=== PATIENT | male | born 1980 | race Caucasian/White ===

== ENCOUNTER 2017-07-02 08:42 | Emergency (ER) | payer MEDICAID, OTHER ==
[~2017-07-02] VITALS: Ht 180.3 cm; Wt 97.6 kg
[2017-07-02 08:46] VITALS: BP 138/87
--- NOTE | 2017-07-02 08:52 | NUR ---
PT AMBULATED TO ER BED 04
--- NOTE | 2017-07-02 09:05 | NUR ---
PATIENT PRESENTS TO ED WITH C/O COUGHING UP BLOOD x 3 DAYS. PT DENIES FEVER OR CHILLS. MEDS: NONE HX: LIVER CHIRROSIS 2013 AND ANXIETY, PT STATES IM SPITTING BLOOD AND I HAVE ANXIETY,PER PT HE USED TO ALCOHOLIC AND HE STOP 2 DAYS AGO, WITH N/V/D; SKIN IS PINK/WARM/DRY; AAOX4 WITH EVEN AND STEADY GAIT; LUNGS CLEAR BL; HR EVEN AND REGULAR; PT DENIES ANY FEVER, CP, OR COUGH AT THIS TIME; PATIENT STATES PAIN OF 9/10 AT THIS TIME/CHEST LEFT ABDOMEN; PATIENT POSITIONED FOR COMFORT; HOB ELEVATED; BEDRAILS UP X2; BED DOWN. ER MD MADE AWARE OF PT STATUS.
[2017-07-02] MEDS ORDERED: ONDANSETRON 4 MG/2 ML VIAL IVP ONE (09:20)
[2017-07-02] MEDS ORDERED: NACL 0.9% 1,000 ML IV ONE (09:20)
[2017-07-02] MEDS ORDERED: LORazepam 2 MG/ML VIAL IVP ONE (09:20)
[2017-07-02 09:50] LABS: BASOPHILS # (AUTO) 0.2 K/uL (0.00-0.22); HEMOGLOBIN 15.1 g/dL (12.0-18.0); MONOCYTES # (AUTO) 0.4 K/uL (0.8-1.0); RED CELL DISTRIBUTION WIDTH 15.7 % (11.6-13.7); WHITE BLOOD COUNT (AUTO) 3.7 K/uL (4.8-10.8)
[2017-07-02 09:54] LABS: BASOPHILS % (AUTO) 4.2 % (0.0-2.0); EOSINOPHILS % (AUTO) 0.8 % (0.0-4.0); HEMATOCRIT 45.3 % (36-52); LYMPHOCYTES # (AUTO) 0.7 K/uL (2.0-11.5); LYMPHOCYTES % (AUTO) 17.9 % (20.5-51.1); MEAN CORPUSCULAR HEMOGLOBIN 30 pg (27-31); MEAN CORPUSCULAR HGB CONC 33 g/dL (33-37); MEAN CORPUSCULAR VOLUME 91 fL (80-94); NEUTROPHILS # (AUTO) 2.4 K/uL (1.8-7.7); NEUTROPHILS % (AUTO) 66.1 % (42.2-75.2); PLATELET COUNT (AUTO) 171 K/uL (140-450)
[2017-07-02 10:03] LABS: CARBON DIOXIDE 26.3 mmol/L (21-32); POTASSIUM 4.3 mmol/L (3.5-5.1)
[2017-07-02 10:09] LABS: ALBUMIN 4.2 g/dL (3.4-5.0); TOTAL BILIRUBIN 1.2 mg/dL (0.0-1.0)
[2017-07-02 10:10] LABS: PROTHROMBIN TIME 10.3 secs (10.8-13.4)
[2017-07-02 10:43] VITALS: BP 128/75
== END 2017-07-02 10:42 | disposition home or self-care (01) ==
LOC: MED 08:42
DX: F10.10 Alcohol abuse, uncomplicated (principal); K74.60 Unspecified cirrhosis of liver
CPT/HCPCS: 36415; 80053; 83690; 85025; 85610; 85730; 86886; 86900; 86901; 96361; 96374; 96375; 99284; J2060; J2405; J7030

== ENCOUNTER 2018-05-25 09:40 | Emergency (ER) | payer MEDICAID, OTHER ==
[~2018-05-25] VITALS: Ht 180.3 cm; Wt 83.9 kg
[2018-05-25 09:44] VITALS: BP 144/93
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
--- NOTE | 2018-05-25 10:27 | NUR ---
RETURN FROM CT.
--- NOTE | 2018-05-25 10:34 | NUR ---
Patient being evaluated by DR CORDERO at bedside.
--- NOTE | 2018-05-25 10:35 | NUR ---
WOUND CLEAN BY SIMONE HELMS
--- NOTE | 2018-05-25 10:49 | NUR ---
ALLAN AT [facility] BY DR CORDERO. PT TOLERATED PROCEDURE WELL.
[2018-05-25 11:11] VITALS: BP 118/76
--- NOTE | 2018-05-25 11:11 | NUR ---
Patient given written and verbal discharge instructions and verbalizes understanding. Given copies of tests performed during visit. Patient is awake, alert and oriented. Ambulatory with steady gait. Refuses offer of group home placement. Given list of available shelters in surrounding areas. GAVE HOMLESS RESOUCES, FOOD & CLOTHES.
== END 2018-05-25 11:11 | disposition home or self-care (01) ==
LOC: MED 09:40
DX: S01.01XA Laceration without foreign body of scalp, initial encounter (principal); R11.0 Nausea; M54.2 Cervicalgia; W19.XXXA Unspecified fall, initial encounter; Y93.55 Activity, bike riding; Y92.89 Other specified places as the place of occurrence of the external cause; Y99.8 Other external cause status
CPT/HCPCS: 12001; 70450; 90471; 90715; 99284

== ENCOUNTER 2019-02-13 13:59 | Emergency (ER) | payer OTHER ==
[~2019-02-13] VITALS: Ht 177.8 cm; Wt 77.1 kg
--- NOTE | 2019-02-13 13:59 | NUR ---
Patient BIBA BLS, transferred to bed 5. RN evaluating patient at bedside.
[2019-02-13 14:02] VITALS: BP 106/80
--- NOTE | 2019-02-13 14:15 | NUR ---
PT BROUGHT IN BY EMS FOR ALCOHOL INTOXICATION. PT STATES THAT HE DRINKS "THE HARD STUFF", PT REPORTS LAST DRINK AT 11AM ON 02/13/19, AMOUNT UNKNOWN. PT REQUESTING ATIVAN AND YELLING FOR DOCTOR. SEIZURE PADS IN PLACE. BED RAILS X 2 FOR PATIENT SAFETY. ER MD TO SEE PT. HX: CIRRHOSIS OF THE LIVER RX:SEROQUEL
--- NOTE | 2019-02-13 14:19 | NUR ---
PT YELLING OUT FOR THE , YELLING " I WANT ATIVAN!"
[2019-02-13] MEDS ORDERED: MULTIVITAMIN-12 10 ML, THIAMINE 100 MG, MAGNESIUM SULFATE 50% 2,000 MG, FOLIC ACID 5 MG... IV ONE ×5 (14:21)
[2019-02-13] MEDS ORDERED: NACL 0.9% 1,000 ML IV ONE (14:21)
[2019-02-13] MEDS ORDERED: PROMETHAZINE 25 MG/ML VIAL IM ONE (14:25)
[2019-02-13] MEDS ORDERED: LORazepam 2 MG/ML VIAL IVP ONE (14:25)
--- NOTE | 2019-02-13 14:25 | NUR ---
lights dimmed for pt comfort
--- NOTE | 2019-02-13 14:40 | NUR ---
ORDERED REG DIET TRAY FOR PT
[2019-02-13 15:10] LABS: BASOPHILS # (AUTO) 0.1 K/uL (0.00-0.22); BASOPHILS % (AUTO) 1.4 % (0.0-2.0); EOSINOPHILS # (AUTO) 0.1 K/uL (0-0.4); EOSINOPHILS % (AUTO) 2.5 % (0.0-4.0); HEMATOCRIT 41.9 % (36-52); LYMPHOCYTES # (AUTO) 1.4 K/uL (2.0-11.5); LYMPHOCYTES % (AUTO) 29.2 % (20.5-51.1); MEAN CORPUSCULAR HEMOGLOBIN 32 pg (27-31); MEAN CORPUSCULAR HGB CONC 34 g/dL (33-37); MEAN CORPUSCULAR VOLUME 96.8 fL (80-94); MONOCYTES # (AUTO) 0.3 K/uL (0.8-1.0); MONOCYTES % (AUTO) 5.9 % (1.7-9.3); NEUTROPHILS # (AUTO) 2.8 K/uL (1.8-7.7); PLATELET COUNT (AUTO) 207 K/uL (140-450); RED BLOOD CELL COUNT(AUTO) 4.33 MIL/uL (4.20-6.10); RED CELL DISTRIBUTION WIDTH 15.2 % (11.6-13.7); WHITE BLOOD COUNT (AUTO) 4.6 K/uL (4.8-10.8)
[2019-02-13 15:15] LABS: APPEARANCE,URINE CLEAR (CLEAR); BILIRUBIN,URINE NEGATIVE (NEGATIVE); BLOOD, URINE NEGATIVE (NEGATIVE); COLOR,URINE AMBER (YELLOW); LEUKOCYTE ESTERASE ,URINE NEGATIVE (NEGATIVE); NITRITE, URINE NEGATIVE (NEGATIVE); UGLUCOSE NEGATIVE (NEGATIVE)
[2019-02-13 15:18] LABS: BARBITURATE, URINE NEG. ng/ml (NEG <=200); BENZODIAZEPINE, URINE NEG. ng/mL (NEG <=200); CANNABINOID, URINE NEG. ng/mL (NEG <=50); COCAINE, URINE NEG. ng/mL (NEG <=300); OPIATE, URINE NEG. ng/mL (NEG <=2000); PHENCYCLIDINE SCREEN,URINE NEG. ng/mL (NEG <=25)
--- NOTE | 2019-02-13 15:35 | NUR ---
pt asleep in bed, arousable to verbal stimuli. diet tray placed at bedside
[2019-02-13 15:49] LABS: ALBUMIN 3.4 g/dL (3.4-5.0); ANION GAP 12.3 (8-16); ASPARTATE AMINOTRANSFERASE 124 U/L (15-37); CARBON DIOXIDE 30.5 mmol/L (21-32); CHLORIDE 107 mmol/L (98-107); CREATININE 0.8 mg/dL (0.7-1.3); GFR ARICAN-AMERICAN 138 mL/min (>90); GLUCOSE 93 mg/dL (74-106); POTASSIUM 3.8 mmol/L (3.5-5.1); SODIUM SERUM 146 mmol/L (136-145); TOTAL BILIRUBIN 0.2 mg/dL (0.0-1.0); UREA NITROGEN, BLOOD 6 mg/dL (7-18)
[2019-02-13 15:50] LABS: ACETAMINOPHEN < 0.5 ug/ml (10-30)
--- NOTE | 2019-02-13 16:25 | NUR ---
PT ASLEEP IN BED, RISE AND FALL OF CHEST VISIBLE.
--- NOTE | 2019-02-13 18:28 | NUR ---
PT CONTINUES TO SLEEP IN BED, AROUSABLE TO VERBAL STIMULI, VSS
--- NOTE | 2019-02-13 18:59 | NUR ---
PT AWAKE AND SITTING UP IN BED EATING
[2019-02-13 19:21] VITALS: BP 107/68
--- NOTE | 2019-02-13 19:22 | NUR ---
Patient discharged with v/s stable. Written and verbal after care instructions given and explained. Patient alert, oriented and verbalized understanding of instructions. Ambulatory with steady gait. All questions addressed prior to discharge. ID band removed. Patient advised to follow up with PMD. Rx of VISTARIL given. Patient educated on indication of medication including possible reaction and side effects. Opportunity to ask questions provided and answered.
== END 2019-02-13 19:22 | disposition home or self-care (01) ==
LOC: MED 13:59
DX: F10.20 Alcohol dependence, uncomplicated (principal); Y90.8 Blood alcohol level of 240 mg/100 ml or more; Z91.14 Patient's other noncompliance with medication regimen; Z59.0 Homelessness
CPT/HCPCS: 36415; 71045; 80053; 80305; 81003; 83735; 85025; 96365; 96366; 96375; 99284; A9153; G0480; G0482; J2060; J2550; J3411; J3475; J3490; J7030; Q0092

== ENCOUNTER 2019-02-15 13:01 | Emergency (ER) | payer OTHER ==
[~2019-02-15] VITALS: Ht 180.3 cm; Wt 96.2 kg
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
--- NOTE | 2019-02-15 13:06 | NUR ---
Madie rodriguez in ED - 02/15/19 at 1337 by [facility] A & O X 3. SPEECH IS CLEAR.
--- NOTE | 2019-02-15 13:06 | NUR ---
A & O X 3. SPEECH IS SLURRED D/T ETOH.
--- NOTE | 2019-02-15 13:34 | NUR ---
Madie rodriguez in ED - 02/15/19 at 1334 by [facility] A & O X 3. SPEECH IS CLEAR.
--- NOTE | 2019-02-15 13:57 | NUR ---
PT RESTING IN BED WITH EYES CLOSED. BED LOCKED IN LOW POSITION, PT POSITIONED COMFORTABLY. VSS. WILL CONTINUE TO MONITOR.
--- NOTE | 2019-02-15 14:22 | NUR ---
PT RELAXED AND SLEEPING COMFROTABLY. NO DISTRESS NOTED. CHEST RISE AND FALL ARE SYMMETRICAL
--- NOTE | 2019-02-15 15:32 | NUR ---
Pt provided with a meal tray. Pt sitting in bed eating lunch and advised he would be discharged soon. Pt states "I need Ativan!" Dr. Celeste made aware.
--- NOTE | 2019-02-15 15:33 | NUR ---
Pt walked to nurses station yelling at staff that he needs Ativan. Pt advised he would be discharged and pt began to yell more saying "If i it's on you!" Pt left facility out of ambulance entrance yelling and cursing at staff. Security was called.
--- NOTE | 2019-02-15 15:34 | NUR ---
PATIENT ELOPED FROM FACILITY. DISCHARGE INSTRUCTIONS NOT GIVEN TO PATIENT. DR. ABDI NOTIFIED.
== END 2019-02-15 15:34 | disposition left against medical advice (07) ==
LOC: MED 13:01
DX: F10.129 Alcohol abuse with intoxication, unspecified (principal); M79.18 Myalgia, other site; Z59.0 Homelessness
CPT/HCPCS: 82948; 99283

== ENCOUNTER 2019-03-08 14:35 | Emergency (ER) | payer OTHER ==
[~2019-03-08] VITALS: Ht 180.3 cm; Wt 86.2 kg
[2019-03-08 15:11] VITALS: BP 149/71
--- NOTE | 2019-03-08 17:40 | NUR ---
PT AMBULATED TO CHAIR C WITH STEADY GAIT.
[2019-03-08 17:44] VITALS: BP 141/72
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
[2019-03-08] MEDS ORDERED: ONDANSETRON 4 MG ODT PO ONE (18:15)
[2019-03-08] MEDS ORDERED: predniSONE 20 MG TAB PO ONE (18:15)
--- NOTE | 2019-03-08 18:33 | NUR ---
PT WILLING TO WAIT FOR LAB RESULT IN THE LOBBY AT THIS TIME. AAO X4, GCS 15, AMBULATORY WITH STDEAY GAIT. NO ACUTE DISTRESS AT THIS TIME
[2019-03-08 18:38] LABS: BASOPHILS % (AUTO) 0.5 % (0.0-2.0); EOSINOPHILS # (AUTO) 0.1 K/uL (0-0.4); EOSINOPHILS % (AUTO) 1.2 % (0.0-4.0); HEMATOCRIT 45.4 % (36-52); HEMOGLOBIN 15.1 g/dL (12.0-18.0); LYMPHOCYTES # (AUTO) 1.7 K/uL (2.0-11.5); LYMPHOCYTES % (AUTO) 30.9 % (20.5-51.1); MEAN CORPUSCULAR HEMOGLOBIN 32 pg (27-31); MEAN CORPUSCULAR HGB CONC 33 g/dL (33-37); MEAN CORPUSCULAR VOLUME 96.6 fL (80-94); MONOCYTES # (AUTO) 0.2 K/uL (0.8-1.0); MONOCYTES % (AUTO) 3.9 % (1.7-9.3); NEUTROPHILS # (AUTO) 3.4 K/uL (1.8-7.7); NEUTROPHILS % (AUTO) 63.5 % (42.2-75.2); PLATELET COUNT (AUTO) 275 K/uL (140-450); RED CELL DISTRIBUTION WIDTH 15.3 % (11.6-13.7); WHITE BLOOD COUNT (AUTO) 5.4 K/uL (4.8-10.8)
[2019-03-08 18:47] LABS: ANION GAP 15.3 (8-16); CARBON DIOXIDE 29.3 mmol/L (21-32); CREATININE 0.8 mg/dL (0.7-1.3); POTASSIUM 3.6 mmol/L (3.5-5.1)
[2019-03-08 18:53] LABS: ALBUMIN 3.5 g/dL (3.4-5.0); TOTAL BILIRUBIN 0.2 mg/dL (0.0-1.0)
--- NOTE | 2019-03-08 19:20 | NUR ---
PATIENT ELOPED FROM FACILITY. DISCHARGE INSTRUCTIONS NOT GIVEN TO PATIENT. DR. ABDI NOTIFIED.VSS PRIOR TO ELOPPING.
== END 2019-03-08 19:20 | disposition left against medical advice (07) ==
LOC: MED 14:35
DX: F10.129 Alcohol abuse with intoxication, unspecified (principal); R10.31 Right lower quadrant pain; F20.9 Schizophrenia, unspecified; Z88.8 Allergy status to other drugs, medicaments and biological substances
CPT/HCPCS: 36415; 80053; 82150; 83690; 85025; 99284; G0482; J7512; Q0162; Q0163

== ENCOUNTER 2019-03-31 07:03 | Emergency (ER) | payer OTHER ==
[~2019-03-31] VITALS: Ht 180.3 cm; Wt 86.2 kg
[2019-03-31 07:20] VITALS: BP 131/80
--- NOTE | 2019-03-31 07:20 | NUR ---
TO BED # 04 AMBULATORY
--- NOTE | 2019-03-31 07:25 | NUR ---
38/YO M C/O PAIN 10/10 OVER HIS ENTIRE BODY. PT STATES HE HAS CIRRHOSIS WITH BLOOD IN THE STOOL AND VOMITTING FOR THE LAST 10 YRS. BED LOWERED TO LOWEST POSITION X2 BED RAIL IN PLACE. NKA MEDHX: CIRRHOSIS
--- NOTE | 2019-03-31 07:32 | NUR ---
Dr. Lilly is evaluating the patient at bedside.
[2019-03-31] MEDS ORDERED: LORazepam 2 MG/ML VIAL IM ONE (07:35)
[2019-03-31] MEDS ORDERED: ONDANSETRON 4 MG ODT PO ONE (07:35)
[2019-03-31 08:40] VITALS: BP 131/80
--- NOTE | 2019-03-31 08:40 | NUR ---
Patient discharged with v/s stable. Written and verbal after care instructions given and explained. Patient alert, oriented and verbalized understanding of instructions. Ambulatory with steady gait. All questions addressed prior to discharge. ID band removed. Patient advised to follow up with PMD. Rx of ZOFRAN AND ATIVAN given. Patient educated on indication of medication including possible reaction and side effects. Opportunity to ask questions provided and answered.
== END 2019-03-31 08:40 | disposition home or self-care (01) ==
LOC: MED 07:03
DX: F10.239 Alcohol dependence with withdrawal, unspecified (principal); R11.2 Nausea with vomiting, unspecified; F41.9 Anxiety disorder, unspecified; Z88.8 Allergy status to other drugs, medicaments and biological substances
CPT/HCPCS: 96372; 99283; J2060; Q0162

== ENCOUNTER 2019-04-05 14:23 | Emergency (ER) | payer OTHER ==
[~2019-04-05] VITALS: Ht 180.3 cm; Wt 86.2 kg
--- NOTE | 2019-04-05 14:24 | NUR ---
PT BIBA to bed 01.
[2019-04-05 14:34] VITALS: BP 117/42
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
--- NOTE | 2019-04-05 15:05 | NUR ---
Dr. Evans is evaluating the patient at bedside.
[2019-04-05 15:52] VITALS: BP 125/64
--- NOTE | 2019-04-05 16:51 | NUR ---
PT RESTING IN BED, NO SIGNS OF DISTRESS, EQUAL RISE AND FALL OF CHEST. VSS, ON BEDSIDE MONITOR.
[2019-04-05] MEDS ORDERED: ONDANSETRON 4 MG/2 ML VIAL ONE (18:10)
[2019-04-05] MEDS ORDERED: ONDANSETRON 4 MG/2 ML VIAL IVP ONE (18:10)
--- NOTE | 2019-04-05 18:18 | NUR ---
GAVE PT BUS PASS AND HOMELESS FOOD PACKET. PT REFUSED HOMELESS RESOURCES--STATES "I KNOW ALL THE RESOURCES". ALSO TOOK HIMSELF OFF BEDSIDE MONITOR AND REFUSED TO BE CONNECTED BACK.
--- NOTE | 2019-04-05 18:36 | NUR ---
PATIENT ELOPED FROM FACILITY. DISCHARGE INSTRUCTIONS NOT GIVEN TO PATIENT. DR. CAICEDO NOTIFIED. LT AC IV WAS REMOVED EARLIER WITH CANNULA INTACT.
== END 2019-04-05 18:36 | disposition left against medical advice (07) ==
LOC: MED 14:23
DX: F10.129 Alcohol abuse with intoxication, unspecified (principal); F17.210 Nicotine dependence, cigarettes, uncomplicated; F20.9 Schizophrenia, unspecified; K74.60 Unspecified cirrhosis of liver; Z88.8 Allergy status to other drugs, medicaments and biological substances
CPT/HCPCS: 96374; 99283; J2405

== ENCOUNTER 2019-04-12 14:37 | Emergency (ER) | payer OTHER ==
[~2019-04-12] VITALS: Ht 180.3 cm; Wt 88.5 kg
[2019-04-12 14:54] VITALS: BP 150/94
--- NOTE | 2019-04-12 15:06 | NUR ---
PT AMB TO BED 8
[2019-04-12] MEDS ORDERED: LORazepam 2 MG/ML VIAL IM ONE (15:45)
[2019-04-12] MEDS ORDERED: diphenhydrAMINE 50 MG/ML VIAL IM ONE (15:45)
[2019-04-12 15:57] VITALS: BP 150/93
--- NOTE | 2019-04-12 16:02 | NUR ---
PT WITH HANDS UP HE WAS WORSHIPING IN TREMORS---ANXIOUS DENIES PAIN
[2019-04-12 16:21] LABS: BARBITURATE, URINE NEG. ng/ml (NEG <=200); BENZODIAZEPINE, URINE POS. ng/mL (NEG <=200); CANNABINOID, URINE POS. ng/mL (NEG <=50); COCAINE, URINE NEG. ng/mL (NEG <=300); OPIATE, URINE NEG. ng/mL (NEG <=2000); PHENCYCLIDINE SCREEN,URINE NEG. ng/mL (NEG <=25)
--- NOTE | 2019-04-12 16:50 | NUR ---
CARMENR TO ATIVAN OR BENADRYL
--- NOTE | 2019-04-12 16:51 | NUR ---
PT GIVEN HOMELESS MEAL, REFUSED TO HAVE VS TAKEN, REFUSED TO SIGN DISCHARGE PAPERWORK OR HOMELESS WAIVER. PT GIVEN SUBSTANCE ABUSE AND CORRECTION PACKETS PT GIVEN RX FOR VISTARIL REFUSED TO LISTEN TO ANY OTHER DISCHARGE INSTRUCTIONS
== END 2019-04-12 16:51 | disposition home or self-care (01) ==
LOC: MED 14:37
DX: F12.10 Cannabis abuse, uncomplicated (principal); F19.10 Other psychoactive substance abuse, uncomplicated; F48.9 Nonpsychotic mental disorder, unspecified; F41.9 Anxiety disorder, unspecified; Z88.8 Allergy status to other drugs, medicaments and biological substances
CPT/HCPCS: 36415; 80305; 96372; 99283; G0482; J1200; J2060

== ENCOUNTER 2019-09-08 16:11 | Emergency (ER) | payer OTHER ==
[~2019-09-08] VITALS: Ht 180.3 cm; Wt 72.6 kg
[2019-09-08 16:19] VITALS: BP 134/80
[2019-09-08] MEDS ORDERED: HALOPERIDOL IM 5 MG/ML VIAL IVP ONE (16:30)
[2019-09-08] MEDS ORDERED: NACL 0.9% 1,000 ML IV ONE ×2 (16:30→18:00)
[2019-09-08] MEDS ORDERED: diphenhydrAMINE 50 MG/ML VIAL IVP ONE (16:30)
--- NOTE | 2019-09-08 16:35 | NUR ---
Pt moved to bed 6.
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
--- NOTE | 2019-09-08 17:02 | NUR ---
Pt now quiet, calm relaxed, no longer yelling. Placed on ekg monitor, pulse oximetry, placed on oxygen via nasal canula d/t O2 88% on room air after medication administration. Pt now 98% with O2 supplement. Spit mask removed. Will continue to monitor.
--- NOTE | 2019-09-08 17:25 | NUR ---
Pt taken to CT via rtristen.
[2019-09-08 17:30] LABS: BASOPHILS % (AUTO) 0.3 % (0.0-2.0); EOSINOPHILS # (AUTO) 0.2 K/uL (0-0.4); EOSINOPHILS % (AUTO) 4.4 % (0.0-4.0); HEMATOCRIT 41.3 % (36-52); HEMOGLOBIN 13.9 g/dL (12.0-18.0); LYMPHOCYTES # (AUTO) 0.7 K/uL (2.0-11.5); LYMPHOCYTES % (AUTO) 19.5 % (20.5-51.1); MEAN CORPUSCULAR HEMOGLOBIN 31 pg (27-31); MEAN CORPUSCULAR HGB CONC 34 g/dL (33-37); MEAN CORPUSCULAR VOLUME 91.8 fL (80-94); MONOCYTES # (AUTO) 0.3 K/uL (0.8-1.0); MONOCYTES % (AUTO) 8.6 % (1.7-9.3); NEUTROPHILS # (AUTO) 2.5 K/uL (1.8-7.7); NEUTROPHILS % (AUTO) 67.2 % (42.2-75.2); PLATELET COUNT (AUTO) 115 K/uL (140-450); RED CELL DISTRIBUTION WIDTH 15.2 % (11.6-13.7); WHITE BLOOD COUNT (AUTO) 3.8 K/uL (4.8-10.8)
[2019-09-08 17:32] LABS: APPEARANCE,URINE CLEAR (CLEAR); BILIRUBIN,URINE NEGATIVE (NEGATIVE); BLOOD, URINE TRACE-I (NEGATIVE); COLOR,URINE YELLOW (YELLOW); LEUKOCYTE ESTERASE ,URINE NEGATIVE (NEGATIVE); NITRITE, URINE NEGATIVE (NEGATIVE); UGLUCOSE NEGATIVE (NEGATIVE)
--- NOTE | 2019-09-08 17:35 | NUR ---
Pt returned from CT and placed in bed 6.
[2019-09-08 17:50] LABS: ALBUMIN 4.1 g/dL (3.4-5.0); ANION GAP 14.2 (8-16); CARBON DIOXIDE 26.5 mmol/L (21-32); CREATININE 0.9 mg/dL (0.6-1.3); POTASSIUM 3.7 mmol/L (3.5-5.1); TOTAL BILIRUBIN 0.5 mg/dL (0.0-1.0)
[2019-09-08 17:54] LABS: BARBITURATE, URINE NEGATIVE ng/ml (NEG <=200); BENZODIAZEPINE, URINE POSITIVE ng/mL (NEG <=200); CANNABINOID, URINE NEGATIVE ng/mL (NEG <=50); COCAINE, URINE NEGATIVE ng/mL (NEG <=300); OPIATE, URINE NEGATIVE ng/mL (NEG <=2000); PHENCYCLIDINE SCREEN,URINE NEGATIVE ng/mL (NEG <=25)
--- NOTE | 2019-09-08 18:00 | NUR ---
ANOTHER BOLUS STARTED
--- NOTE | 2019-09-08 18:01 | NUR ---
PT LAYING IN BED SLEEPING.
--- NOTE | 2019-09-08 18:22 | NUR ---
PT PENDING TRANSFER TO ANOTHER FACILITY FOR HIGHER LEVEL OF CARE. PT HAS FRACTURED L JAW.
--- NOTE | 2019-09-08 18:26 | NUR ---
CONSENT SIGNED FOR TRANSFER BY ELVIN YU AND PATI YU PT UNABLE TO SIGN DUE TO ETOH
[2019-09-08] MEDS ORDERED: fentaNYL 0.05 MG/ML VIAL IVP ONE (18:35)
--- NOTE | 2019-09-08 18:38 | NUR ---
FENTANYL ADMINISTERED IVP
--- NOTE | 2019-09-08 18:39 | NUR ---
ETA 30 MIN TO [facility]
--- NOTE | 2019-09-08 18:50 | NUR ---
called [facility] and gave report to rosalee
[2019-09-08 19:08] VITALS: BP 108/55
--- NOTE | 2019-09-08 19:08 | NUR ---
Patient to be transferred to [facility]. Is being transferred due to HIGHER LEVEL OF CARE. Receiving facility has accepting physician and available space. ER physician has signed transfer form. Patient or responsible constitution party has agreed to transfer and signed form. Patient belongings inventoried and will be sent with patient. Copy of nursing notes, lab reports, EKG, Physicians Orders and X-rays to be sent with patient. Report called to FLACO at receiving facility. [facility] IS HERE FOR TRANSFER
== END 2019-09-08 19:08 | disposition short-term general hospital (02) ==
LOC: MED 16:11
DX: S02.609A Fracture of mandible, unspecified, initial encounter for closed fracture (principal); F10.129 Alcohol abuse with intoxication, unspecified; F15.10 Other stimulant abuse, uncomplicated; Z88.8 Allergy status to other drugs, medicaments and biological substances; Y93.62 Activity, american flag or touch football; Y93.89 Activity, other specified; Y92.89 Other specified places as the place of occurrence of the external cause; Y99.8 Other external cause status
CPT/HCPCS: 36415; 70486; 80053; 80305; 81003; 85025; 96374; 96375; 99284; G0482; J1200; J1630; J3010; J7030

== ENCOUNTER 2019-10-30 04:03 | Emergency (ER) | payer OTHER ==
[~2019-10-30] VITALS: Ht 180.3 cm; Wt 83.9 kg
[2019-10-30 04:23] VITALS: BP 138/91
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
--- NOTE | 2019-10-30 04:40 | NUR ---
Dr. Ashby examining patient.
[2019-10-30] MEDS ORDERED: LORazepam 1 MG TAB PO ONE (04:55)
[2019-10-30 05:20] VITALS: BP 138/91
== END 2019-10-30 05:28 | disposition home or self-care (01) ==
LOC: MED 04:03
DX: F10.239 Alcohol dependence with withdrawal, unspecified (principal); F41.9 Anxiety disorder, unspecified; Y90.9 Presence of alcohol in blood, level not specified; Z88.8 Allergy status to other drugs, medicaments and biological substances
CPT/HCPCS: 99283

== ENCOUNTER 2019-11-05 15:16 | Emergency (ER) | payer OTHER ==
[~2019-11-05] VITALS: Ht 180.3 cm; Wt 88.5 kg
[2019-11-05 15:31] VITALS: BP 116/64
[2019-11-05 15:35] VITALS: BP 110/61
--- NOTE | 2019-11-05 15:35 | NUR ---
subjective fever, productive cough, chest tightness, sob, n/v/d for 3 days
--- NOTE | 2019-11-05 16:21 | NUR ---
PATIENT LEFT WITHOUT BEING SEEN BY YUDY VOGEL. NO FURTHER CARE PROVIDED FOR PATIENT. Addendum: 11/05/19 at 1640 by JUANITA COVID SWAB WAS NOT COLLECTED.
--- NOTE | 2019-11-05 16:21 | NUR ---
Madie rodriguez in EDM - 11/05/19 at 1637 by JUANITA ePATIENT ELOPED FROM FACILITY. DISCHARGE INSTRUCTIONS NOT GIVEN TO PATIENT. BENITO VOGEL NOTIFIED.
== END 2019-11-05 16:21 | disposition left against medical advice (07) ==
LOC: MED 15:16
DX: R50.9 Fever, unspecified (principal); R05 Cough; R07.89 Other chest pain; Z53.21 Procedure and treatment not carried out due to patient leaving prior to being seen by health care provider

== ENCOUNTER 2019-12-19 07:37 | Emergency (ER) | payer OTHER ==
[~2019-12-19] VITALS: Ht 180.3 cm; Wt 86.2 kg
--- NOTE | 2019-12-19 07:40 | NUR ---
PATIENT AMBULATED TO BED 7.
[2019-12-19 07:42] VITALS: BP 134/84
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
[2019-12-19] MEDS ORDERED: NACL 0.9% 1,000 ML IV ONE (07:55)
[2019-12-19] MEDS ORDERED: ONDANSETRON 4 MG/2 ML VIAL IVP ONE ×2 (07:55→09:45)
[2019-12-19] MEDS ORDERED: LORazepam 2 MG/ML VIAL IVP ONE ×2 (07:55→09:45)
[2019-12-19 08:14] LABS: BASOPHILS # (AUTO) 0.1 K/uL (0.00-0.22); BASOPHILS % (AUTO) 1.2 % (0.0-2.0); EOSINOPHILS % (AUTO) 0.5 % (0.0-4.0); HEMATOCRIT 43.9 % (36-52); LYMPHOCYTES # (AUTO) 1.1 K/uL (2.0-11.5); LYMPHOCYTES % (AUTO) 22.7 % (20.5-51.1); MEAN CORPUSCULAR HEMOGLOBIN 33 pg (27-31); MEAN CORPUSCULAR HGB CONC 34 g/dL (33-37); MEAN CORPUSCULAR VOLUME 95.3 fL (80-94); MONOCYTES # (AUTO) 0.5 K/uL (0.8-1.0); MONOCYTES % (AUTO) 10.6 % (1.7-9.3); NEUTROPHILS # (AUTO) 3.3 K/uL (1.8-7.7); PLATELET COUNT (AUTO) 67 K/uL (140-450); RED BLOOD CELL COUNT(AUTO) 4.61 MIL/uL (4.20-6.10); RED CELL DISTRIBUTION WIDTH 14.8 % (11.6-13.7)
[2019-12-19 08:35] LABS: ALBUMIN 4.2 g/dL (3.4-5.0); CREATININE 1.1 mg/dL (0.6-1.3); TOTAL BILIRUBIN 1.4 mg/dL (0.0-1.0)
[2019-12-19 08:41] LABS: CARBON DIOXIDE 23.3 mmol/L (21-32); POTASSIUM 3.6 mmol/L (3.5-5.1)
[2019-12-19 08:42] LABS: ANION GAP 20.3 (8-16)
[2019-12-19 10:15] VITALS: BP 134/84
== END 2019-12-19 10:15 | disposition home or self-care (01) ==
LOC: MED 07:37
DX: F10.239 Alcohol dependence with withdrawal, unspecified (principal); K70.10 Alcoholic hepatitis without ascites; Z88.8 Allergy status to other drugs, medicaments and biological substances; Y90.5 Blood alcohol level of 100-119 mg/100 ml
CPT/HCPCS: 36415; 80053; 83690; 85025; 96361; 96374; 96375; 96376; 99284; G0482; J2060; J2405; J7030

== ENCOUNTER 2020-02-17 10:00 | Emergency (ER) | payer OTHER ==
[~2020-02-17] VITALS: Ht 177.8 cm; Wt 95.3 kg
--- NOTE | 2020-02-17 10:10 | NUR ---
PT BIB [place] [employer] FOR ETOH INTOXICATION & PREBOOK. PT PRESENTS WITH EXCESSIVE SPEECH AND COMBATIVE BEHAVIORS. [address] [place] [address] OFFIERS ARE WITH PT[address] CORDERO IS AT BEDSIDE AND EVALUATING PT. MULTIPLE BRUSING SPOTS NOTICED ON PT'S ABDOMEN.
[2020-02-17] MEDS ORDERED: LORazepam 2 MG/ML VIAL ONE ×2 (10:11→10:21)
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
--- NOTE | 2020-02-17 10:15 | NUR ---
administered 1mg ativan IM for aggitation
[2020-02-17] MEDS ORDERED: LORazepam 2 MG/ML VIAL IM ONE ×2 (10:30)
--- NOTE | 2020-02-17 10:30 | NUR ---
VS obtained & entered into pt chart
--- NOTE | 2020-02-17 10:30 | NUR ---
pt remains combative and aggitated, moved pt to bed 11 with assistance from [place] [employer]. additional 1mg ativan given IM per Dr. Leon order.
[2020-02-17] MEDS ORDERED: HALOPERIDOL IM 5 MG/ML VIAL IM ONE (10:35)
[2020-02-17 11:02] LABS: BASOPHILS % (AUTO) 0.5 % (0.0-2.0); EOSINOPHILS # (AUTO) 0.2 K/uL (0-0.4); HEMATOCRIT 39.6 % (36-52); HEMOGLOBIN 13.3 g/dL (12.0-18.0); LYMPHOCYTES # (AUTO) 1.9 K/uL (2.0-11.5); LYMPHOCYTES % (AUTO) 27.8 % (20.5-51.1); MEAN CORPUSCULAR HEMOGLOBIN 33 pg (27-31); MEAN CORPUSCULAR HGB CONC 34 g/dL (33-37); MEAN CORPUSCULAR VOLUME 97.5 fL (80-94); MONOCYTES # (AUTO) 0.5 K/uL (0.8-1.0); MONOCYTES % (AUTO) 7.3 % (1.7-9.3); NEUTROPHILS # (AUTO) 4.3 K/uL (1.8-7.7); NEUTROPHILS % (AUTO) 61.4 % (42.2-75.2); PLATELET COUNT (AUTO) 230 K/uL (140-450); RED BLOOD CELL COUNT(AUTO) 4.06 MIL/uL (4.20-6.10)
[2020-02-17 11:15] LABS: PROTHROMBIN TIME 9.6 secs (10.8-13.4)
[2020-02-17 11:17] LABS: ANION GAP 19.4 (8-16); CARBON DIOXIDE 20.4 mmol/L (21-32); CREATININE 0.9 mg/dL (0.6-1.3); POTASSIUM 3.8 mmol/L (3.5-5.1); TOTAL BILIRUBIN 0.4 mg/dL (0.0-1.0)
--- NOTE | 2020-02-17 12:42 | NUR ---
pt remains asleep in bed. no new needs at this time
--- NOTE | 2020-02-17 14:00 | NUR ---
Assisted pt to bathroom. Pt remains asleep in the bed at this time. VSS showed on the monitor.
--- NOTE | 2020-02-17 16:15 | NUR ---
Pt remains asleep in the bed at this time. VSS showed on the monitor.
--- NOTE | 2020-02-17 18:30 | NUR ---
Pt remains asleep in the bed at this time. VSS showed on the monitor.
--- NOTE | 2020-02-17 19:08 | NUR ---
Pt report given to GIGI Ho. Transfer of care at this time.
--- NOTE | 2020-02-17 19:14 | NUR ---
RECEIVED REPORT FROM WANG YU. PT SLEEPING AT THIS TIME. REMAINS ON BEDSIDE MONITOR.
[2020-02-17] MEDS ORDERED: NACL 0.9% 1,000 ML IV ONE (19:30)
--- NOTE | 2020-02-17 19:35 | NUR ---
MD CABRERA AWARE OF PT'S EVAEN B/P OF . NEW ORDER RECEIVED. PT ALSO REQUESTING A [facility] SUP FOR SANDWICHES.
--- NOTE | 2020-02-17 20:12 | NUR ---
PT WAS REQUESTING FOOD, PROVIDED WITH A SANDWICH AND DRINK.
--- NOTE | 2020-02-17 20:45 | NUR ---
PT UP AND AMBULATED TO RESTROOM WITH STEADY GAIT
[2020-02-17 21:18] VITALS: BP 101/51
--- NOTE | 2020-02-17 21:19 | NUR ---
Patient discharged with v/s stable. Written and verbal after care instructions given and explained. Patient verbalized understanding. Ambulatory with steady gait. All questions addressed prior to discharge. Advised to follow up with PMD.
== END 2020-02-17 21:19 | disposition home or self-care (01) ==
LOC: MED 10:00
DX: R45.1 Restlessness and agitation (principal); F10.129 Alcohol abuse with intoxication, unspecified; K74.60 Unspecified cirrhosis of liver; F11.90 Opioid use, unspecified, uncomplicated; Z88.8 Allergy status to other drugs, medicaments and biological substances
CPT/HCPCS: 36415; 80053; 82140; 85025; 85610; 85730; 96360; 96361; 96372; 99284; G0482; J1630; J2060; J7030

== ENCOUNTER 2020-05-30 17:19 | Emergency (ER) | payer OTHER ==
[~2020-05-30] VITALS: Ht 180.3 cm; Wt 90.7 kg
[2020-05-30 17:23] VITALS: BP 120/70
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
--- NOTE | 2020-05-30 17:30 | NUR ---
UA OBTAINED FROM PT
[2020-05-30] MEDS ORDERED: HALOPERIDOL IM 5 MG/ML VIAL ONE (17:35)
[2020-05-30] MEDS ORDERED: LORazepam 2 MG/ML VIAL ONE (17:35)
[2020-05-30] MEDS ORDERED: LORazepam 2 MG/ML VIAL IVP ONE (17:40)
[2020-05-30] MEDS ORDERED: HALOPERIDOL IM 5 MG/ML VIAL IM ONE (17:40)
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
--- NOTE | 2020-05-30 17:51 | NUR ---
Ativan and Haldol given IM as directed by Dr Guadalupe
--- NOTE | 2020-05-30 18:44 | NUR ---
PT ASLEEP IN BED. EQUAL CHEST RISE AND FALL. COOK COLD MEAT IN PLACE. BED LOCKED AND IN LOWEST POSITION. SIDE RAILS X2.
--- NOTE | 2020-05-30 19:15 | NUR ---
REPORT GIVEN TO GIGI SIM. TRANSFER OF CARE AT THIS TIME.
--- NOTE | 2020-05-30 19:18 | NUR ---
RECEIVED REPORT FROM GIGI MYERS FOR CONTINUATION OF CARE AT THIS TIME.
--- NOTE | 2020-05-30 19:42 | NUR ---
PT IS ASLEEP. VISIBLE RISE AND FALL OF CHEST NOTED. PT IS CONNECTED TO THE COUNCILMAN. BED IS LOCKED AND IN LOWEST POSITION. SIDE RAILSX2 FOR PT PROTECTION AT THIS TIME DUE TO ALOC. NO ACUTE DISTRESS NOTED.
--- NOTE | 2020-05-30 20:45 | NUR ---
PT IS ASLEEP ON HIS LEFT SIDE. VISIBLE RISE AND FALL OF CHEST NOTED. PT IS CONNECTED TO THE PEDIATRIC NEUROPSYCHOLOGIST. BED IS LOCKED AND IN LOWEST POSITION. SIDE RAILSX2 FOR PT PROTECTION AT THIS TIME DUE TO ALOC. NO ACUTE DISTRESS NOTED.
--- NOTE | 2020-05-30 21:50 | NUR ---
PT IS ASLEEP ON HIS LEFT SIDE. VISIBLE RISE AND FALL OF CHEST NOTED. PT IS CONNECTED TO THE SPECIAL SERVICES COORDINATOR. BED IS LOCKED AND IN LOWEST POSITION. SIDE RAILSX2 FOR PT PROTECTION AT THIS TIME DUE TO ALOC. NO ACUTE DISTRESS NOTED.
--- NOTE | 2020-05-30 22:43 | NUR ---
PT IS ASLEEP ON HIS RIGHT SIDE WITH HOB IN LOW FOWLERS POSITION. VISIBLE RISE AND FALL OF CHEST NOTED. PT IS CONNECTED TO THE HOUSING RELOCATION. BED IS LOCKED AND IN LOWEST POSITION. SIDE RAILSX2 FOR PT PROTECTION AT THIS TIME DUE TO ALOC. NO ACUTE DISTRESS NOTED.
[2020-05-30 23:40] VITALS: BP 131/57
--- NOTE | 2020-05-30 23:44 | NUR ---
PT IS RESTING ON HIS LEFT SIDE. VISIBLE RISE AND FALL OF CHEST NOTED. PT IS CONNECTED TO THE LAUNDRY HOUSEKEEPER. BED IS LOCKED AND IN LOWEST POSITION. SIDE RAILSX2 FOR PT PROTECTION AT THIS TIME DUE TO ALOC. NO ACUTE DISTRESS NOTED.
--- NOTE | 2020-05-31 00:30 | NUR ---
PT IS RESTING ON HIS LEFT SIDE. VISIBLE RISE AND FALL OF CHEST NOTED. PT IS CONNECTED TO THE ASSEMBLER PIANO. BED IS LOCKED AND IN LOWEST POSITION. SIDE RAILSX2 FOR PT PROTECTION AT THIS TIME DUE TO ALOC. NO ACUTE DISTRESS NOTED.
--- NOTE | 2020-05-31 01:32 | NUR ---
PT AWAKE AND WALKED OUT OF ROOM STATING "I'M LEAVING. I'M GOING HOME." PT AMBULATED OUT OF FACILITY.
--- NOTE | 2020-05-31 01:32 | NUR ---
PATIENT ELOPED FROM FACILITY. DISCHARGE INSTRUCTIONS NOT GIVEN TO PATIENT. DR. DELACRUZ NOTIFIED.
== END 2020-05-31 01:32 | disposition left against medical advice (07) ==
LOC: MED 17:19
DX: F10.129 Alcohol abuse with intoxication, unspecified (principal); R45.6 Violent behavior
CPT/HCPCS: 96372; 99284; J1630; J2060

== ENCOUNTER 2020-07-19 17:48 | Emergency (ER) | payer OTHER ==
--- NOTE | 2020-07-19 17:52 | NUR ---
PT ELOPED FROM [facility]. LWBS. TRIVEDI MADE AWARE.
== END 2020-07-19 17:51 | disposition left against medical advice (07) ==
LOC: MED 17:48
DX: M25.579 Pain in unspecified ankle and joints of unspecified foot (principal); Z53.21 Procedure and treatment not carried out due to patient leaving prior to being seen by health care provider

== ENCOUNTER 2021-01-13 01:51 | Emergency (ER) | payer OTHER ==
[~2021-01-13] VITALS: Ht 180.3 cm; Wt 90.7 kg
--- NOTE | 2021-01-13 01:52 | NUR ---
PT BROUGHT TO BED 7 VIA ANDRES CRUZ
[2021-01-13 01:55] VITALS: BP 147/87
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
--- NOTE | 2021-01-13 02:04 | NUR ---
URINE SAMPLE COLLECTED AND SENT TO LAB
[2021-01-13 02:14] LABS: EOSINOPHILS # (AUTO) 0.8 K/uL (0-0.4); EOSINOPHILS % (AUTO) 10.4 % (0.0-4.0); HEMATOCRIT 39.3 % (36-52); HEMOGLOBIN 13.5 g/dL (12.0-18.0); LYMPHOCYTES # (AUTO) 0.9 K/uL (2.0-11.5); LYMPHOCYTES % (AUTO) 12.5 % (20.5-51.1); MEAN CORPUSCULAR HEMOGLOBIN 34 pg (27-31); MEAN CORPUSCULAR HGB CONC 34 g/dL (33-37); MEAN CORPUSCULAR VOLUME 99.8 fL (80-94); MONOCYTES # (AUTO) 0.5 K/uL (0.8-1.0); MONOCYTES % (AUTO) 6.2 % (1.7-9.3); NEUTROPHILS # (AUTO) 5.2 K/uL (1.8-7.7); NEUTROPHILS % (AUTO) 70.9 % (42.2-75.2); PLATELET COUNT (AUTO) 165 K/uL (140-450); RED BLOOD CELL COUNT(AUTO) 3.93 MIL/uL (4.20-6.10); RED CELL DISTRIBUTION WIDTH 13.6 % (11.6-13.7); WHITE BLOOD COUNT (AUTO) 7.3 K/uL (4.8-10.8)
[2021-01-13 02:27] LABS: ALBUMIN 3.8 g/dL (3.4-5.0); ASPARTATE AMINOTRANSFERASE 66 U/L (15-37); CARBON DIOXIDE 24.6 mmol/L (21-32); CHLORIDE 105 mmol/L (98-107); CREATININE 0.8 mg/dL (0.6-1.3); GFR ARICAN-AMERICAN 136 mL/min (>90); GLUCOSE 89 mg/dL (74-106); POTASSIUM 3.6 mmol/L (3.5-5.1); SODIUM SERUM 143 mmol/L (136-145); TOTAL BILIRUBIN 0.5 mg/dL (0.0-1.0); UREA NITROGEN, BLOOD 4 mg/dL (7-18)
[2021-01-13 02:29] LABS: ACETAMINOPHEN < 0.5 ug/ml (10-30); SALICYLATE < 2.8 mg/dL (2.8-20.0)
[2021-01-13 02:32] LABS: BARBITURATE, URINE NEGATIVE ng/ml (NEG <=200); BENZODIAZEPINE, URINE POSITIVE ng/mL (NEG <=200); CANNABINOID, URINE NEGATIVE ng/mL (NEG <=50); COCAINE, URINE NEGATIVE ng/mL (NEG <=300); OPIATE, URINE NEGATIVE ng/mL (NEG <=2000); PHENCYCLIDINE SCREEN,URINE NEGATIVE ng/mL (NEG <=25)
--- NOTE | 2021-01-13 02:48 | NUR ---
COVID SWAB COLLECTED AND SENT TO LAB
[2021-01-13] MEDS: LORazepam 0.5 MG TAB PO ONE (02:51)
[2021-01-13] MEDS: QUEtiapine FUMARATE 25 MG TAB PO STA (02:52)
--- NOTE | 2021-01-13 04:53 | NUR ---
VS STABLE. PT RESTING COMFORTABLY IN BED. NO S/SX OF DISTRESS NOTED. SAFETY MEASURES IN PLACE. WILL CONTINUE TO MONITOR.
--- NOTE | 2021-01-13 07:16 | NUR ---
GAVE REPORT TO ROSA YU FOR CONTINUITY OF CARE
--- NOTE | 2021-01-13 07:17 | NUR ---
Pt BEDSIDE report given to GIGI LEE. Transfer of care at this time.
--- NOTE | 2021-01-13 08:00 | NUR ---
Received intake. Information has been faxed to the following facilities for review for placement. [facility]/ [place]/ [facility]/ [facility]/ [facility] Will continue to keep facility updated with any information regarding placement.
--- NOTE | 2021-01-13 08:45 | NUR ---
tele psych tablet given to pt to speak to psychiatrist
[2021-01-13] MEDS ORDERED: HALOPERIDOL 5 MG TAB PO PRN (09:05)
[2021-01-13] MEDS ORDERED: LORazepam 1 MG TAB PO PRN (09:05)
--- NOTE | 2021-01-13 10:00 | NUR ---
Vitals taken and pt remains resting in bed. No C/o pain or discomfort at this time. All needs met at this time.
--- NOTE | 2021-01-13 11:39 | NUR ---
VSS, no c/o pain at this time. Ambulated to bathroom, all safety measures in place. All needs met
--- NOTE | 2021-01-13 13:00 | NUR ---
Pt resting comfortably in bed. All needs met. VSS. Able to make all needs known and reposition self in bed.
[2021-01-13] MEDS ORDERED: NACL 0.9% 1,000 ML IV ONE (15:00)
--- NOTE | 2021-01-13 15:00 | NUR ---
Ambulated to bathroom. All safety measures in place. Provided for any needs. Back in bed.
--- NOTE | 2021-01-13 17:20 | NUR ---
PT IS RESTING COMFORTABLY IN BED AND ALL NEEDS MET
--- NOTE | 2021-01-13 19:26 | NUR ---
REPORT RECEIVED FROM GIGI LEE. FOR CONTINUATION OF PATIENT CARE AT THIS TIME.
--- NOTE | 2021-01-13 19:29 | NUR ---
Pt report given to Juana. Transfer of care at this time.
--- NOTE | 2021-01-13 19:45 | NUR ---
PATIENT APPEARS TO BE RESTING W EYES CLOSED LAYING IN BED MICKIE DIN LOWEST POSITION W X2 SIDERAILS UP FOR PATIENT SAFETY. BREATHING EVEN AND UNLABORED, NAD NOTED. WILL CONTINUE TO MONITOR.
--- NOTE | 2021-01-13 21:08 | NUR ---
PATIENT LAYING IN BED LOCKED IN LOWEST POSITION W X2 SIDERAILS UP FOR PATIENT SAFETY. BREATHING EVEN AND UNLABORED. DENIES ANY SOB OR PAIN. REPORTS ANXIETY. REPORTS SI W/O A PLAN. PATIENT PROVIDED W JUICE, WATER AND JELLO PER PATIENT REQUEST. VSS. NAD NOTED, WILL CONTINUE TO MONITOR.
[2021-01-13] MEDS: QUEtiapine FUMARATE 25 MG TAB PO SCH (21:17)
--- NOTE | 2021-01-13 22:08 | NUR ---
PATIENT LAYING IN BED LOCKED IN LOWEST POSITION W X2 SIDERAILS UP FOR PATIENT SAFETY. PATIENT APPEARS TO BE RESTING W EYES CLOSED. BREATHING EVEN AND UNLABORED. NAD NOTED, WILL CONTINUE TO MONITOR.
--- NOTE | 2021-01-14 00:04 | NUR ---
PATIENT LAYING IN BED LOCKED IN LOWEST POSITION W X2 SIDERAILS UP FOR PATIENT SAFETY. PATIENT APPEARS TO BE RESTING W EYES CLOSED R LATERAL POSITION, BLANKET ON. BREATHING EVEN AND UNLABORED. NAD NOTED, WILL CONTINUE TO MONITOR.
--- NOTE | 2021-01-14 00:59 | NUR ---
PATIENT AMBULATED TO BATHROOM W STEADY GAIT. PATIENT AMBULATED BACK TO BED AND PROVIDED W WATER PER REQUEST.
--- NOTE | 2021-01-14 02:08 | NUR ---
PATIENT LAYING IN BED LOCKED IN LOWEST POSITION W X2 SIDERAILS UP FOR PATIENT SAFETY. PATIENT APPEARS TO BE RESTING W EYES CLOSED SUPINE POSITION, BLANKET ON. BREATHING EVEN AND UNLABORED. NAD NOTED, WILL CONTINUE TO MONITOR.
--- NOTE | 2021-01-14 06:12 | NUR ---
NO CHANGE IN PATIENT STATUS AT THIS TIME. PATIENT RESTING W EYES CLOSED AND BREATHING EVEN AND UNLABORED.
--- NOTE | 2021-01-14 07:25 | NUR ---
Pt report given to GIGI BEE. Transfer of care at this time.
--- NOTE | 2021-01-14 08:04 | NUR ---
Patient provided with breakfast tray, sitting up in bed eating. All needs met at this time.
--- NOTE | 2021-01-14 11:04 | NUR ---
PATIENT APPEARS TO BE RESTING WITH EYES CLOSED, RESPIRATIONS EVEN AND UNLABORED. ALL NEEDS MET AT THIS TIME.
--- NOTE | 2021-01-14 11:22 | NUR ---
PATIENT AMBULATED TO RESTROOM WITH STEADY GAIT.
[2021-01-14] MEDS ORDERED: SERTRALINE 50 MG TAB PO SCH (11:30)
[2021-01-14] MEDS: QUEtiapine FUMARATE 25 MG TAB PO ONE (12:13)
--- NOTE | 2021-01-14 13:03 | NUR ---
TELEPSYCH TABLET GIVEN TO PT FOR RE-EVALUATION BY PSYCHOSORIOIS
[2021-01-14] MEDS ORDERED: QUET50TA PO (14:21)
--- NOTE | 2021-01-14 14:38 | NUR ---
Patient discharged with v/s stable. Written and verbal after care instructions given and explained ABOUT ADJUSTMENT DISORDER. Patient alert, oriented and verbalized understanding of instructions. Ambulatory with steady gait. All questions addressed prior to discharge. ID band removed. Patient advised to follow up with PMD. Rx of SEROQUEL given. Patient educated on indication of medication including possible reaction and side effects. Opportunity to ask questions provided and answered. OFFERED RESOURCES UPON DISCHARGE.
[2021-01-14 14:41] VITALS: BP 118/77
== END 2021-01-14 14:38 | disposition home or self-care (01) ==
LOC: MED 01:51
DX: R45.851 Suicidal ideations (principal); F10.129 Alcohol abuse with intoxication, unspecified; F15.10 Other stimulant abuse, uncomplicated; Z88.1 Allergy status to other antibiotic agents; Y90.9 Presence of alcohol in blood, level not specified; Z20.822 Contact with and (suspected) exposure to COVID-19
CPT/HCPCS: 80053; 80305; 85025; 87426; 99285; G0480; G0482; U0003

== ENCOUNTER 2021-01-15 22:17 | Emergency (ER) | payer OTHER ==
[~2021-01-15] VITALS: Ht 180.3 cm; Wt 90.7 kg
[2021-01-15 22:17] VITALS: BP 107/95
[~2021-01-15 22:17] MED LIST: QUET50TA PO
--- NOTE | 2021-01-15 22:19 | NUR ---
Shukri SANDOVAL via gurney to bed 05.
--- NOTE | 2021-01-15 22:32 | NUR ---
RT at bedside
--- NOTE | 2021-01-15 23:20 | NUR ---
patient aggravated and restless- screaming and yelling out. ERMD made aware-- orders to medicate patient
[2021-01-15] MEDS ORDERED: LORazepam 2 MG/ML VIAL IM ONE (23:25)
[2021-01-15] MEDS ORDERED: HALOPERIDOL IM 5 MG/ML VIAL IM ONE (23:30)
[2021-01-15] MEDS ORDERED: ONDANSETRON 4 MG/2 ML VIAL IVP ONE (23:30)
[2021-01-15] MEDS ORDERED: LORazepam 2 MG/ML VIAL IVP ONE (23:30)
[2021-01-15] MEDS ORDERED: diphenhydrAMINE 50 MG/ML VIAL IM ONE (23:30)
[2021-01-15] MEDS ORDERED: NACL 0.9% 2,000 ML IV ONE (23:30)
[2021-01-15 23:42] LABS: BASOPHILS # (AUTO) 0.1 K/uL (0.00-0.22); BASOPHILS % (AUTO) 0.4 % (0.0-2.0); EOSINOPHILS # (AUTO) 0.1 K/uL (0-0.4); EOSINOPHILS % (AUTO) 0.6 % (0.0-4.0); HEMATOCRIT 49.1 % (36-52); HEMOGLOBIN 16.4 g/dL (12.0-18.0); LYMPHOCYTES # (AUTO) 0.2 K/uL (2.0-11.5); LYMPHOCYTES % (AUTO) 1.5 % (20.5-51.1); MEAN CORPUSCULAR HEMOGLOBIN 34 pg (27-31); MEAN CORPUSCULAR HGB CONC 33 g/dL (33-37); MEAN CORPUSCULAR VOLUME 101.3 fL (80-94); MONOCYTES # (AUTO) 0.5 K/uL (0.8-1.0); MONOCYTES % (AUTO) 3.6 % (1.7-9.3); NEUTROPHILS # (AUTO) 12.9 K/uL (1.8-7.7); NEUTROPHILS % (AUTO) 93.9 % (42.2-75.2); PLATELET COUNT (AUTO) 160 K/uL (140-450); RED BLOOD CELL COUNT(AUTO) 4.85 MIL/uL (4.20-6.10); WHITE BLOOD COUNT (AUTO) 13.8 K/uL (4.8-10.8)
[2021-01-16 00:04] LABS: ALBUMIN 4.7 g/dL (3.4-5.0); ANION GAP 21.9 (8-16); CARBON DIOXIDE 22.4 mmol/L (21-32); CREATININE 1.6 mg/dL (0.6-1.3); POTASSIUM 4.3 mmol/L (3.5-5.1); TOTAL BILIRUBIN 0.5 mg/dL (0.0-1.0)
[2021-01-16] MEDS ORDERED: diphenhydrAMINE 50 MG/ML VIAL IVP ONE (00:25)
[2021-01-16] MEDS ORDERED: HALOPERIDOL IM 5 MG/ML VIAL IM ONE (00:25)
--- NOTE | 2021-01-16 04:08 | NUR ---
Patient appears to be resting comfortably in bed-low fowlers with eyes closed. Vital Signs within normal limits. Respirations even and unlabored. Safety measures are in place and will continue to monitor patient.
--- NOTE | 2021-01-16 05:00 | NUR ---
patient refused to urinate in a cup. ERMD made aware
--- NOTE | 2021-01-16 05:00 | NUR ---
IV removed, catheter intact and site benign. Applied folded 4x4 gauze and tape to stop bleeding.
[2021-01-16 05:05] VITALS: BP 107/95
--- NOTE | 2021-01-16 05:05 | NUR ---
Patient discharged with v/s stable. Written and verbal after care instructions given and explained. Patient verbalized understanding. Ambulatory with steady gait. ID band removed. All questions addressed prior to discharge. Advised to follow up with PMD.
--- NOTE | 2021-01-16 05:05 | NUR ---
provided patient with orange juice, blanket, and bus pass
[2021-01-16] MEDS ORDERED: NACL 0.9% 1,000 ML IV ONE (05:15)
[2021-01-17] MEDS ORDERED: ZIPRASIDONE MESYLATE 20 MG/ML VIAL IM ONE (15:52)
[2021-01-17] MEDS ORDERED: WATER STERILE 10 ML MC ONE (15:53)
== END 2021-01-16 05:05 | disposition home or self-care (01) ==
LOC: MED 22:17
DX: R41.82 Altered mental status, unspecified (principal); F10.129 Alcohol abuse with intoxication, unspecified; Z79.899 Other long term (current) drug therapy; Z88.8 Allergy status to other drugs, medicaments and biological substances
CPT/HCPCS: 36415; 80053; 83690; 85025; 96361; 96372; 96374; 96375; 99284; G0482; J1200; J1630; J2060; J2405; J7030; J3486

== ENCOUNTER 2021-03-10 12:09 | Emergency (ER) | payer OTHER ==
[~2021-03-10] VITALS: Ht 172.7 cm; Wt 80.7 kg
[2021-03-10 12:12] VITALS: BP 190/110
[2021-03-10 12:39] VITALS: BP 190/110
--- NOTE | 2021-03-10 12:39 | NUR ---
PATIENT BIB [place] [employer]. PATIENT EXAMINED BY DR. RENAE. PATIENT MEDICALLY CLEARED AND RELEASED IN CUSTODY IN STABLE CONDITION. ORIGINAL PRE-BOOK FORM GIVEN TO OFFICER [employer].
== END 2021-03-10 12:39 ==
LOC: MED 12:09
DX: Z02.89 Encounter for other administrative examinations (principal); R45.1 Restlessness and agitation; F20.9 Schizophrenia, unspecified; Z79.899 Other long term (current) drug therapy; Z88.8 Allergy status to other drugs, medicaments and biological substances
CPT/HCPCS: 99283

== ENCOUNTER 2021-04-04 15:17 | Emergency (ER) | payer OTHER ==
[~2021-04-04] VITALS: Ht 185.4 cm; Wt 99.8 kg
[~2021-04-04 15:17] MED LIST changes: +IBUP-2213 PO; +LORA-476 PO; +NAPR-54 PO; +OMEP40EC24 PO; +ONDA-188 PO; +ONDA-188 SL
[2021-04-04 15:18] VITALS: BP 138/73
--- NOTE | 2021-04-04 15:23 | NUR ---
PT TO WAIT IN LOBBY.
--- NOTE | 2021-04-04 15:29 | NUR ---
PATIENT LEFT WITHOUT BEING SEEN BY DR. MOBLEY. NO FURTHER CARE PROVIDED FOR PATIENT.
== END 2021-04-04 15:29 | disposition left against medical advice (07) ==
LOC: MERGE 15:17 → MED 15:17
DX: M25.572 Pain in left ankle and joints of left foot (principal); M25.562 Pain in left knee; Z53.21 Procedure and treatment not carried out due to patient leaving prior to being seen by health care provider

== ENCOUNTER 2022-09-29 19:25 | Emergency (ER) | payer SELFPAY ==
[~2022-09-29] VITALS: Ht 180.3 cm; Wt 90.7 kg
[2022-09-29 19:30] VITALS: BP 136/90
--- NOTE | 2022-09-29 19:33 | NUR ---
TO LOBBY A/W BED AMBULATORY
--- NOTE | 2022-09-29 21:50 | NUR ---
Patient called three times in lobby, no answer. Checked outside and patient's name called three times, no answer.
--- NOTE | 2022-09-29 21:51 | NUR ---
PATIENT LEFT WITHOUT BEING SEEN BY DR. KWONG. NO FURTHER CARE PROVIDED FOR PATIENT.
== END 2022-09-29 21:51 | disposition left against medical advice (07) ==
LOC: MED 19:25
DX: S61.204A Unspecified open wound of right ring finger without damage to nail, initial encounter (principal); Z53.21 Procedure and treatment not carried out due to patient leaving prior to being seen by health care provider; X58.XXXA Exposure to other specified factors, initial encounter; Y93.89 Activity, other specified; Y92.89 Other specified places as the place of occurrence of the external cause; Y99.8 Other external cause status
CPT/HCPCS: 99281

== ENCOUNTER 2022-10-08 10:03 | Emergency (ER) | payer SELFPAY ==
[~2022-10-08] VITALS: Ht 180.3 cm; Wt 90.7 kg
[2022-10-08 10:27] VITALS: BP 115/67
[2022-10-08] MEDS ORDERED: BACITRACIN OINT 500 UNITS/GM PKT TP ONE (10:45)
[2022-10-08] MEDS ORDERED: NON ADHERENT DRESSING TP SCH (10:45)
--- NOTE | 2022-10-08 11:01 | NUR ---
1055 PT'S RIGHT HAND FOURTH DIGIT WOUND DRESSED W/ NONADHERENT GAUZE PAD AND WRAPPED W/ GAUZE ROLL. +CMS
== END 2022-10-08 11:05 | disposition home or self-care (01) ==
LOC: MED 10:03
DX: S61.411A Laceration without foreign body of right hand, initial encounter (principal); Z79.899 Other long term (current) drug therapy; Z79.1 Long term (current) use of non-steroidal anti-inflammatories (NSAID); Z88.8 Allergy status to other drugs, medicaments and biological substances; X58.XXXA Exposure to other specified factors, initial encounter; Y92.89 Other specified places as the place of occurrence of the external cause; Y93.89 Activity, other specified; Y99.8 Other external cause status
CPT/HCPCS: 90471; 90715; 99283

== ENCOUNTER 2022-12-16 12:24 | Emergency (ER) | payer SELFPAY ==
[~2022-12-16] VITALS: Ht 185.4 cm; Wt 113.4 kg
[2022-12-16] MEDS ORDERED: HALOPERIDOL IM 5 MG/ML VIAL IM ONE (12:30)
[2022-12-16 12:37] VITALS: BP 114/76; PULSE 97; RESP 18; TEMP 98.1; O2SAT 95
[2022-12-16] MEDS ORDERED: LIB25 PO (14:26)
[2022-12-16 14:35] VITALS: BP 114/76; PULSE 97; RESP 18; TEMP 98.1; O2SAT 95
== END 2022-12-16 14:35 | disposition home or self-care (01) ==
LOC: MED 12:24
DX: F10.129 Alcohol abuse with intoxication, unspecified (principal); Y90.9 Presence of alcohol in blood, level not specified
CPT/HCPCS: 99283

== ENCOUNTER 2023-06-14 17:42 | Emergency (ER) | payer MEDICAID ==
[~2023-06-14] VITALS: Ht 177.8 cm; Wt 104.3 kg
[~2023-06-14 17:42] MED LIST changes: +CHLO-836 PO
[2023-06-14 17:50] VITALS: BP 117/56; PULSE 87; RESP 18; TEMP 98.1; O2SAT 95
[2023-06-14] MEDS ORDERED: HALOPERIDOL IM 5 MG/ML VIAL ONE (17:50)
[2023-06-14 18:39] LABS: BASOPHILS # (AUTO) 0.1 K/uL (0.00-0.22); EOSINOPHILS # (AUTO) 0.1 K/uL (0-0.4); EOSINOPHILS % (AUTO) 1.2 % (0.0-4.0); HEMATOCRIT 38.1 % (36-52); HEMOGLOBIN 13.2 g/dL (12.0-18.0); LYMPHOCYTES # (AUTO) 2.7 K/uL (2.0-11.5); LYMPHOCYTES % (AUTO) 29.5 % (20.5-51.1); MEAN CORPUSCULAR HEMOGLOBIN 33 pg (27-31); MEAN CORPUSCULAR HGB CONC 35 g/dL (33-37); MEAN CORPUSCULAR VOLUME 93.8 fL (80-94); MONOCYTES # (AUTO) 0.8 K/uL (0.8-1.0); MONOCYTES % (AUTO) 8.6 % (1.7-9.3); NEUTROPHILS # (AUTO) 5.4 K/uL (1.8-7.7); NEUTROPHILS % (AUTO) 59.7 % (42.2-75.2); PLATELET COUNT (AUTO) 277 K/uL (140-450); RED BLOOD CELL COUNT(AUTO) 4.07 MIL/uL (4.20-6.10)
[2023-06-14 18:51] LABS: ANION GAP 16.9 (8-16); CALCIUM 8.3 mg/dL (8.5-10.1); CARBON DIOXIDE 22.2 mmol/L (21-32); CREATININE 0.7 mg/dL (0.6-1.3); POTASSIUM 3.1 mmol/L (3.5-5.1)
[2023-06-14] MEDS: HALOPERIDOL IM 5 MG/ML VIAL IM ONE (18:53)
[2023-06-14 19:04] LABS: ALANINE AMINOTRANSFERASE 46 U/L (12-78); ALBUMIN 3.1 g/dL (3.4-5.0); ALKALINE PHOSPHATASE 76 U/L (50-136); ASPARTATE AMINOTRANSFERASE 47 U/L (15-37); BILIRUBIN,DIRECT 0.1 mg/dL (0.0-0.3); TOTAL BILIRUBIN 0.4 mg/dL (0.0-1.0); TOTAL PROTEIN, SERUM 7.6 g/dL (6.4-8.2)
[2023-06-14 19:07] LABS: SALICYLATE < 2.8 mg/dL (2.8-20.0)
[2023-06-14 19:08] LABS: ACETAMINOPHEN < 0.5 ug/ml (10-30); ALCOHOL, BLOOD 470 mg/dL (<10)
[2023-06-14 19:32] VITALS: O2SAT 99
[2023-06-14] MEDS: POTASSIUM CHLORIDE 10 MEQ TABER PO ONE (22:21)
[2023-06-14] MEDS: diphenhydrAMINE 50 MG/ML VIAL IM ONE (22:30)
[2023-06-14 23:05] LABS: AMPHETAMINE, URINE POSITIVE ng/ml (NEG <=1000); BARBITURATE, URINE NEGATIVE ng/ml (NEG <=200)
[2023-06-14 23:06] LABS: BENZODIAZEPINE, URINE NEGATIVE ng/mL (NEG <=200); CANNABINOID, URINE NEGATIVE ng/mL (NEG <=50); COCAINE, URINE NEGATIVE ng/mL (NEG <=300); OPIATE, URINE NEGATIVE ng/mL (NEG <=2000); PHENCYCLIDINE SCREEN,URINE NEGATIVE ng/mL (NEG <=25)
[2023-06-14] MEDS: LORazepam 2 MG/ML VIAL IM ONE (23:26)
[2023-06-15] MEDS: POTASSIUM CHLORIDE 10 MEQ TABER PO ONE (05:37)
[2023-06-15 05:44] VITALS: BP 115/79; PULSE 92; RESP 17; TEMP 98.1; O2SAT 99
== END 2023-06-15 05:45 | disposition home or self-care (01) ==
LOC: MED 17:42
DX: F10.129 Alcohol abuse with intoxication, unspecified (principal); E87.6 Hypokalemia; Z88.8 Allergy status to other drugs, medicaments and biological substances; Z79.899 Other long term (current) drug therapy; Y90.9 Presence of alcohol in blood, level not specified
CPT/HCPCS: 36415; 70450; 80048; 80076; 80305; 85025; 96372; 99285; G0480; G0482; J1200; J1630; J2060